=== PATIENT | female | born 1985 | race African-American/Black ===

== ENCOUNTER 2021-10-14 02:12 | Emergency (ER) | payer OTHER ==
[~2021-10-14] VITALS: Ht 170.2 cm; Wt 92.0 kg
[2021-10-14 02:20] VITALS: BP 129/82
[2021-10-14] MEDS ORDERED: DEXAMETHASONE 4MG TABLET PO ONE (02:30)
[2021-10-14] MEDS ORDERED: IPRATROPIUM/ALBUTEROL 0.5-3(2.5)MG/3ML NEB HHN ONE (02:30)
[2021-10-14] MEDS ORDERED: MED4 MT (02:36)
[2021-10-14] MEDS ORDERED: ALBU6.7H9 INH (02:36)
[2021-10-14] MEDS ORDERED: VISCOUS LIDOCAINE 2% 15 ML UDC PO STA (03:21)
[2021-10-14] MEDS ORDERED: MAGNESIUM/ALUMINUM HYDROXIDE/SIMETHICONE 30ML UDC PO STA (03:21)
[2021-10-14] MEDS ORDERED: PROT20 MT (03:51)
== END 2021-10-14 04:02 | disposition home or self-care (01) ==
LOC: ER 02:12
DX: J45.901 Unspecified asthma with (acute) exacerbation (principal); Z98.890 Other specified postprocedural states
CPT/HCPCS: 93005; 94640; 99283; Z7610; J8540